=== PATIENT | male | born 1980 | race Caucasian/White ===

== ENCOUNTER 2016-07-04 18:50 | Emergency (ER) | payer OTHER, SELFPAY ==
[2016-07-04] MEDS ORDERED: XYLOCAINE 2% HCL 20 ML MDV IJ ONE (19:38)
--- NOTE | 2016-07-04 19:40 | ERPHSYRPT ---
- History of Present Illness Time Seen by Provider: 07/04/16 19:25 Source: patient, family Exam Limitations: clinical condition Patient Subjective Stated Complaint: PT IS IN THE PROCESS OF MOVING ET TRIPPED OVER A BUNGEE CORD YESTERDAY AND STRUCK THE LEFT EYE AND FOREHEAD ON THE EDGE OF A TABLE. REPORTS POSITIVE LOC, UNKNOWN AMOUNT OF TIME. PT IS CONCERNED DUE TO PREVIOUS HEAD INJURY. SUPERFICIAL SCAR NOTED TO BACK OF NECK. Triage Nursing Assessment: PT IS AOX3, FOLLOWS COMMANDS, PT AMBULATORY TO TRT AREA WITH STEADY GAIT, SKIN IS PWD, LACERATION NOTED TO LEFT FOREHEAD AND SWELLING TO LEFT EYE, RESPS ARE EASY AND NONLABORED. Physician History: PATIENT STATES HE TRIPPED OVER BUNGEE CORD LAST NIGHT, STRUCK HIS FACE AGAINST TABLE SUSTAINED LACERATION ABOVE LEFT EYEBROW, BRUSING WITH SWELLING BELOW LEFT EYE. HAD LOSS OF CONSCIOUSNESS, ASSOCIATED WITH EMESIS X 2, NECK PAIN, MORE SO THAN FROM HIS DEGENERATIVE DISC DISEASE. DENIES NUMBNESS, TINGLING OR WEAKNESS IN EXTREMITIES, UNSTABLE GAIT. Occurred: yesterday Reason for Fall: tripped Injuries/Pain Location: head, face, neck Loss of Consciousness: prolonged (minutes) Quality: aching Severity of Pain-Max: mild Modifying Factors: Improves With: movement Associated Symptoms (Fall): denies symptoms Allergies/Adverse Reactions: No Known Drug Allergies Allergy (Verified 07/04/16 19:18) Home Medications: Hydrocodone/APAP 10/325 mg [[place] 10/325 MG Tablet] 1 tab PO Q4HPRN PRN [History] Alprazolam 1 mg [Xanax 1 mg] 1 mg PO Q6HPRN PRN 07/04/16 [History] Lisinopril 10 mg [Zestril 10 MG] 10 mg PO DAILY 07/04/16 [History] Hx Tetanus, Diphtheria Vaccination/Date Given: Yes Hx Influenza Vaccination/Date Given: No Hx Pneumococcal Vaccination/Date Given: No Immunizations Up to Date: Yes - Review of Systems Constitutional: No Fever, No Chills Eyes: Other (SWELLING, BRUISING BELOW LEFT EYE, LACERATION ABOVE LEFT EYE BROW) Ears, Nose, & Throat: No Symptoms Respiratory: No Symptoms, No Cough, No Dyspnea Cardiac: No Symptoms, No Chest Pain, No Edema, No Syncope Abdominal/Gastrointestinal: No Abdominal Pain, No Nausea, No Vomiting, No Diarrhea Genitourinary Symptoms: No Symptoms, No Dysuria Musculoskeletal: Neck Pain, No Back Pain Skin: No Rash Neurological: Other (LOSS OF CONSCIOUSNESS), No Dizziness, No Focal Weakness, No Sensory Changes Psychological: No Symptoms Endocrine: No Symptoms All Other Systems: Reviewed and Negative - Past Medical History Pertinent Past Medical History: Yes Neurological History: No Pertinent History, Other ENT History: No Pertinent History Cardiac History: No Pertinent History, Hypertension Respiratory History: Asthma, COPD Endocrine Medical History: No Pertinent History Musculoskeletal History: Arthritis, Degenerative Disk Disease, Fractures, Other GI Medical History: No Pertinent History History: No Pertinent History Psycho-Social History: Anxiety, Bipolar, Depression Male Reproductive Disorders: Other Other Medical History: hx several broken bones, sharp pain in side of head with slight memory loss.,shingles, testicular veriocele, mrsa in rt foot one yr ago - Past Surgical History Past Surgical History: Yes Neuro Surgical History: No Pertinent History Cardiac: No Pertinent History Respiratory: No Pertinent History Gastrointestinal: No Pertinent History Genitourinary: No Pertinent History Musculoskeletal: Other Male Surgical History: Testicular Surgery Other Surgical History: SPINE RECONSTRUCTION - Social History Smoking Status: Current every day smoker How long have you smoked: 25 Exposure to second hand smoke: Yes Drug Use: none Patient Lives Alone: No - Nursing Vital Signs Nursing Vital Signs: Initial Vital Signs Temperature 98.0 F Temperature Source Oral Pulse Rate 85 Respiratory Rate 18 Blood Pressure [] 147/79 Pain Intensity 2 - Lorrie Coma Score Best Eye Response ([place]): (4) open spontaneously Best Verbal Response ([place]orrie): (5) oriented Best Motor Response ([place]): (6) obeys commands Lorrie Total: 15 - Physical Exam General Appearance: no apparent distress, alert, other (RIGID CERVICAL COLLAR APPLIED UPON ARRIVAL) Head Injury: lacerations (LEFT LATERAL FOREHEAD SUPERIOR TO LEFT EYEBROW 3CM DIAGONAL LACERATION, NO EVIDENCE OF FOREIGN BODY) Eye Exam: PERRL/EOMI, other (LEFT INFRAORBITAL ECCHYMOSIS AND SWELLING, NO PERIORBITAL CREPITUS) ENT Exam: airway nml Neck Exam: supple, normal inspection, other (MINIMAL POST CERVICAL SPINAL TENDERNESS,), No tenderness Respiratory/Chest Exam: normal breath sounds, No chest tenderness, No respiratory distress Cardiovascular Exam: normal heart sounds, regular rate/rhythm Gastrointestinal Exam: soft, No tenderness, No distention, No guarding, No ecchymosis Back Exam: normal inspection, normal range of motion, No vertebral tenderness Extremity Exam: normal inspection, normal range of motion, pelvis stable, No deformities Peripheral Pulses: carotid (R): 2+, carotid (L): 2+, femoral (R): 2+, femoral (L ): 2+, dorsalis-pedis (R): 2+, dorsalis-pedis (L): 2+ Neurologic Exam: alert, oriented x 3, cooperative, sensation nml, No motor deficits Skin Exam: normal color, warm, dry SpO2 Interpretation: normal SpO2: 98 Oxygen Delivery: Room Air Procedures - Laceration/Wound Repair Head Wound Location: Left, forehead Wound Length (cm): 3 Wound's Depth, Shape: linear, into subcut Irrigated: Yes Hibiclens Prep: Yes Anesthesia: local, 2% Lidocaine Volume Anesthetic (ccs): 4 Wound Repaired With: sutures Suture Size/Type: 5-0 Number of Sutures: 6 Layer Closure?: No Sterile Dressing Applied?: Yes - CT Exams Head CT Interpretation: Tele-radiologist Report, No/Intracranial Hemorrhag Maxillofacial Bones CT Interpretation: Tele-radiologist Report (LEFT ORBITAL FRACTURE WITH APPROXIMATELY 6MM DEPRESSION, NO CT EVIDENCE FOR ENTRAPMENT, FRACTURE ALSO EXTENDS INTO THE ROOF OF THE ORBIT INVOLVING THE LEFT FRONTAL SINUS, THERE IS EXTENSIVE LEFT FACIAL SOFT TISSUE SWELLING WITH GAS PRESENT IN THE SOFT TISSUE) Cervical Spine CT Interpretation: Tele-radiologist Report, No Fracture, No Subluxation (NORMAL CERVICAL SPINE CT) Ordered Tests: Active Orders 24 hr Category Date Time Status Cervical Collar Application STAT Care 07/04/16 19:36 Active Ice Pack, Apply STAT Care 07/04/16 19:39 Active CERVICAL SPINE WO CONTRAST [CT] Stat Exams 07/04/16 19:38 Taken FACIAL BONES WO CONTRAST [CT] Stat Exams 07/04/16 19:35 Taken HEAD WITHOUT CONTRAST [CT] Stat Exams 07/04/16 19:35 Taken Medication Summary Generic Name Dose Route Start Last Admin Trade Name Freq PRN Reason Stop Dose Admin Acetaminophen/Hydrocodone Bitart 2 tab 07/04/16 21:15 [place] 10/325 Mg Tablet PO 07/04/16 21:16 SENT HOME W/ PATIENT ONE Discontinued Medications Generic Name Dose Route Start Last Admin Trade Name Laisha PRN Reason Stop Dose Admin Acetaminophen/Hydrocodone Bitart 1 tab 07/04/16 21:03 07/04/16 21:10 [place] 10/325 Mg Tablet PO 07/04/16 21:04 1 tab STAT ONE Administration Acetaminophen/Hydrocodone Bitart Confirm 07/04/16 21:09 [place] 10/325 Mg Tablet Administered 07/04/16 21:10 Dose 1 tab .ROUTE .STK-MED ONE Bacitracin Confirm 07/04/16 20:40 Baciguent Packet Administered 07/04/16 20:41 Dose 1 gm .ROUTE .STK-MED ONE Cephalexin HCl 500 mg 07/04/16 20:45 07/04/16 20:52 Keflex 500 Mg PO 07/04/16 20:46 500 mg STAT ONE Administration Cephalexin HCl Confirm 07/04/16 20:48 Keflex 500 Mg Administered 07/04/16 20:49 Dose 500 mg .ROUTE .STK-MED ONE Lidocaine HCl 4 ml 07/04/16 19:38 07/04/16 20:44 Xylocaine 2% Hcl 20 Ml Mdv IJ 07/04/16 19:39 4 ml STAT ONE Administration Lidocaine HCl Confirm 07/04/16 20:07 Xylocaine 2% Hcl 20 Ml Mdv Administered 07/04/16 20:08 Dose 4 ml .ROUTE .STK-MED ONE - Progress Progress: pain not gone completely Progress Note: 07/04/16 20:09 PATIENT TETNUS IS CURRENT 07/04/16 20:58 PATIENT ADMINISTERED KEFLEX 500MG AND [place] 10/325 ORALLY 07/04/16 21:07 Discussed with .: Other (CONSULTED DR BAILEY [facility] AT [facility]100 FOR OFFICE FOLLOWUP) Counseled pt/family regarding: diagnosis - Departure Time of Disposition: 21:17 Departure Disposition: Home Clinical Impression: LEFT ORBITAL FLOOR/FRONTAL SINUS FRACTURES, CONCUSSION, FOREHEAD LACERATION Condition: Stable Critical Care Time: No Referrals: ANNA PATINO [Primary Care Provider] - Additional Instructions: CALL [facility]GE[facility] DR BAILEY FOR APPOINTMENT AT [facility] TOMORROW FOR APPOINTMENT. ANTIBIOTIC KEFLEX 500MG EVERY 6 HOURS FOR 7 DAYS. NORCO 10/325 EVERY 4 HOURS FOR PAIN NEEDED. HAVE STITCHES REMOVED AT 10 DAYS. WATCH FOR SIGNS OF INFECTION, REDNESS, SWELLING OR DRAINAGE. Prescriptions: Hydrocodone/APAP 10/325 mg [[place] 10/325 MG Tablet] 1 tab PO Q4H PRN PRN # 10 tablet PRN Reason: Pain Cephalexin Mh 500 mg [Keflex 500 mg] 500 mg PO QID #28 capsule
[2016-07-04] MEDS ORDERED: XYLOCAINE 2% HCL 20 ML MDV ONE (20:07)
[2016-07-04] MEDS ORDERED: BACIGUENT PACKET ONE (20:40)
[2016-07-04] MEDS ORDERED: KEFLEX 500 MG PO ONE (20:45)
[2016-07-04] MEDS ORDERED: KEFLEX 500 MG ONE (20:48)
[2016-07-04] MEDS ORDERED: Norco 10/325 MG Tablet PO ONE ×2 (21:03→21:15)
[2016-07-04] MEDS ORDERED: Norco 10/325 MG Tablet ONE ×2 (21:09→21:18)
[2016-07-04 21:24] VITALS: BP 160/56; PULSE 88; O2SAT 99
[2016-07-05] MEDS ORDERED: BACIGUENT PACKET TP ONE (04:23)
--- NOTE | 2016-07-05 08:58 | XRAY ---
Indication: Pain following fall. Multiple contiguous axial images obtained through the head without contrast. Comparison: None Small focus of left supraorbital soft tissue swelling/laceration. CT facial bones reported separately. 3 cm arachnoid cyst in the right posterior fossa. No acute intracranial hemorrhage, abnormal extra-axial fluid collection, or mass effect. Fourth ventricle is midline without hydrocephalus. Bland-white matter differentiation preserved. Bony calvarium intact. Visualized paranasal sinuses and mastoid air cells are pneumatized and clear. Impression: Right posterior fossa arachnoid cyst. No acute intracranial abnormalities. Comment: Preliminary interpretation was made by [facility]. No critical discrepancy. CT DI 49.71
--- NOTE | 2016-07-05 09:06 | XRAY ---
Indication: Pain following fall. Multiple contiguous axial images obtained through the facial bones. Sagittal and coronal reformatted images obtained. Comparison: None Left orbit demonstrates mildly depressed fracture involving the floor. Smaller focus of minimal displaced fracture seen of the roof of the left orbit. Surrounding subcutaneous emphysema and soft tissue swelling. No extraocular muscle entrapment. Paranasal sinuses are pneumatized and clear. Incidental enlarged palatine tonsils bilaterally. Remaining visualized noncontrasted soft tissues unremarkable. CT head and CT cervical spine reported separately. Impression: Left orbital floor and roof fractures as detailed. Incidental enlarged palatine tonsils. Comment: Preliminary interpretation was made by [facility]. No critical discrepancy. CT DI 59.47
--- NOTE | 2016-07-05 09:08 | XRAY ---
Indication: Status post fall. Multiple contiguous axial images obtained through the cervical spine. Sagittal and coronal reformatted images obtained. Axial images negative for acute fracture, suspicious bony lesions, or spinal canal stenosis. Sagittal and coronal reformatted images demonstrates normal alignment with disc spaces preserved. No acute compression fracture, subluxation, or jumped facet. Normal-appearing craniocervical junction. Incidental prominent palatine tonsils bilaterally. Remaining visualized noncontrasted soft tissues unremarkable. CT head and CT facial bones reported separately. Impression: Negative for acute fracture/subluxation. Incidental prominent palatine tonsils. Comment: Preliminary interpretation was made by [facility]. No critical discrepancy. CT DI 111.09
== END 2016-07-04 21:23 | disposition home or self-care (01) ==
LOC: ED 18:50
PROC: 0HQ1XZZ Repair Face Skin, External Approach (ICD-10-PCS; principal; 2016-07-04)
DX: S02.32XA Fracture of orbital floor, left side, initial encounter for closed fracture (principal); W01.190A Fall on same level from slipping, tripping and stumbling with subsequent striking against furniture, initial encounter; S02.19XA Other fracture of base of skull, initial encounter for closed fracture; S06.0X9A Concussion with loss of consciousness of unspecified duration, initial encounter; S01.81XA Laceration without foreign body of other part of head, initial encounter
CPT/HCPCS: 12013; 70450; 70486; 72125; 99283; 99284; L0172

== ENCOUNTER 2016-08-10 13:07 | Emergency (ER) | payer OTHER ==
[2016-08-10 13:20] VITALS: O2SAT 97
--- NOTE | 2016-08-10 13:45 | ERPHSYRPT ---
- History of Present Illness Time Seen by Provider: 08/10/16 13:30 Source: patient Exam Limitations: no limitations Patient Subjective Stated Complaint: PT STATES THAT HE HAS BEEN HAVING RIGHT TESTICLE PAIN X 3 DAYS STATES HTE PAIN IS NOW RADIATING UP INTO HIS RIGHT SIDE LOWER QUAD STATES THAT WHEN HE APPLIES PRESSURE TO RIGHT LOWER QUAD IT MAKES THE PAIN FEEL BETTER. 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 Triage Nursing Assessment: PT ALERT WARM AND DRY RESP EASY NON LABOED PT AMBULATED TO ROOM WITHOUT DIFFICULTY LAST ATE AROUND 1130 Timing/Duration: day(s) (3) Activites at Onset: physical activity (lifting heavy objects) Quality: sharpness Onset Location: periumbilical, right testicle Pain Radiation: scrotal Severity of Pain-Max: moderate Severity of Pain-Current: moderate Modifying Factors: Improves With: movement Prior abdominal problems: other (prior left varicocele) Sexual intercourse history: single partner Allergies/Adverse Reactions: No Known Drug Allergies Allergy (Verified 07/04/16 19:18) Home Medications: Hydrocodone/APAP 10/325 mg [[place] 10/325 MG Tablet] 1 tab PO Q4HPRN PRN [History] Alprazolam 1 mg [Xanax 1 mg] 1 mg PO Q6HPRN PRN 07/04/16 [History] Lisinopril 10 mg [Zestril 10 MG] 10 mg PO DAILY 07/04/16 [History] Hx Tetanus, Diphtheria Vaccination/Date Given: Yes Hx Influenza Vaccination/Date Given: No Hx Pneumococcal Vaccination/Date Given: No Immunizations Up to Date: Yes - Past Medical History Pertinent Past Medical History: Yes Neurological History: No Pertinent History, Other ENT History: No Pertinent History Cardiac History: No Pertinent History, Hypertension Respiratory History: Asthma, COPD Endocrine Medical History: No Pertinent History Musculoskeletal History: Arthritis, Degenerative Disk Disease, Fractures, Other GI Medical History: No Pertinent History History: No Pertinent History Psycho-Social History: Anxiety, Bipolar, Depression Male Reproductive Disorders: Other Other Medical History: hx several broken bones, sharp pain in side of head with slight memory loss.,shingles, testicular veriocele, mrsa in rt foot one yr ago - Past Surgical History Past Surgical History: Yes Neuro Surgical History: No Pertinent History Cardiac: No Pertinent History Respiratory: No Pertinent History Gastrointestinal: No Pertinent History Genitourinary: No Pertinent History Musculoskeletal: Other Male Surgical History: Testicular Surgery Other Surgical History: SPINE RECONSTRUCTION - Social History Smoking Status: Current every day smoker How long have you smoked: 16 YEARS Exposure to second hand smoke: Yes Drug Use: none Patient Lives Alone: No - Review of Systems Constitutional: No Symptoms Eyes: No Symptoms Ears, Nose, & Throat: No Symptoms Respiratory: No Symptoms Cardiac: No Symptoms Abdominal/Gastrointestinal: No Symptoms Genitourinary Symptoms: Testicle Pain, No Dysuria, No Frequency, No Hematuria Musculoskeletal: No Symptoms Skin: No Symptoms Neurological: No Symptoms Psychological: No Symptoms Endocrine: No Symptoms Hematologic/Lymphatic: No Symptoms Immunological/Allergic: No Symptoms - Nursing Vital Signs Nursing Vital Signs: Initial Vital Signs Temperature 99.0 F Temperature Source Oral Pulse Rate 89 Respiratory Rate 16 Blood Pressure [] 116/91 Pain Intensity 8 - Physical Exam General Appearance: moderate distress Eye Exam: eyes nml inspection Ears, Nose, Throat Exam: normal ENT inspection, pharynx normal Neck Exam: normal inspection, non-tender, supple, full range of motion Respiratory Exam: normal breath sounds, lungs clear Cardiovascular Exam: regular rate/rhythm, normal heart sounds, normal peripheral pulses Gastrointestinal/Abdomen Exam: soft, normal bowel sounds, tenderness Back Exam: normal inspection, normal range of motion Extremity Exam: normal inspection, normal range of motion, pelvis stable Neurologic Exam: alert, oriented x 3, cooperative Skin Exam: normal color, warm, dry SpO2 Interpretation: normal SpO2: 97 Oxygen Delivery: Room Air - Course Nursing assessment & vital signs reviewed: Yes - Radiology Ultrasound Exam Scrotal Ultrasound: tele radiology report (Negative for testicular torsion. Right epididymal cyst and small hydrocele. ) Ordered Tests: Active Orders 24 hr Category Date Time Status TESTICLE [US] Stat Exams 08/10/16 13:34 Completed UA W/ MICROSCOPIC Stat Lab 08/10/16 14:49 Completed UA W/RFX UR CULTURE Stat Lab 08/10/16 14:49 Completed Lab/Rad Data: Laboratory Results 08/10/16 Range/Units 14:49 Ur Collection Type CCMS Urine Color YELLOW (YELLOW) Urine Appearance CLEAR (CLEAR) Urine pH 6.0 (5-6) Ur Specific [place] >=1.030 (1.005-1.025) Urine Protein TRACE (Negative) Urine Glucose (UA) NEGATIVE (NEGATIVE) mg/dL Urine Ketones SMALL-15 (NEGATIVE) Urine Nitrite NEGATIVE (NEGATIVE) Urine Bilirubin SMALL (NEGATIVE) Urine Urobilinogen 1 (0-1) mg/dL Urine WBC (Auto) NEGATIVE (NEGATIVE) Urine RBC (Auto) NEGATIVE (0-5) Vladimir/ul Urine Microscopic WBC 0-2 (0-5) /HPF Ur Epithelial Cells RARE (FEW) /HPF Urine Mucus SLIGHT (NEGATIVE) /HPF Specimen Received 08-10-16 1507 - Progress Progress: improved Counseled pt/family regarding: lab results, need for follow-up (with urologist) , rad results - Departure Time of Disposition: 15:20 Departure Disposition: Home Clinical Impression: Right testicular pain, Epididymal cyst Condition: Stable Critical Care Time: No Referrals: ANNA PATINO [Primary Care Provider] - Prescriptions: Naproxen 1 tab PO BID #20 tablet
[2016-08-10 14:36] VITALS: BP 116/91; PULSE 89
--- NOTE | 2016-08-10 14:41 | XRAY ---
Indication: Right testicle pain for 4 days. Two-dimensional testicular sonogram performed. Comparison: None Right testicle measures 4.3 x 2.3 x 2.4 cm and left measures 5.2 x 2.2 x 3.0 cm. Normal color perfusion bilaterally. 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 Left testicle demonstrates subtle heterogeneity without focal solid/cystic mass. 1.4 cm right epididymal cyst and small hydrocele. Left epididymis unremarkable. No suspicious solid extra testicular mass. Impression: 1. Negative for testicular torsion. 2. Right epididymal cyst and small hydrocele. 3. Numerous bilateral testicular microliths, typically benign incidental finding. However the left testicle appears somewhat heterogeneous and warrants urologic follow-up.
[2016-08-10 15:16] LABS: ADD URINE CULTURE? NO (NO); Collection Type CCMS
[2016-08-10 15:17] LABS: COMPLETE URINE MICROSCOPIC? YES; Epithelial Cells RARE /HPF (FEW); Mucus SLIGHT /HPF (NEGATIVE); WBC 0-2 /HPF (0-5)
== END 2016-08-10 15:46 | disposition home or self-care (01) ==
LOC: ED 13:07
DX: N50.811 Right testicular pain (principal); N50.3 Cyst of epididymis; X50.0XXA Overexertion from strenuous movement or load, initial encounter; R10.31 Right lower quadrant pain; I10 Essential (primary) hypertension
CPT/HCPCS: 76870; 81000; 99284

== ENCOUNTER 2018-01-13 15:46 | Emergency (ER) | payer OTHER ==
[2018-01-13] MEDS ORDERED: Adenocard IV 6 MG/2 ML IV ONE ×2 (16:01→16:05)
[2018-01-13] MEDS ORDERED: Sodium Chloride 0.9% 1000 ML 1,000 ML ONE ×2 (16:05→17:15)
[2018-01-13 16:12] LABS: BASOPHIL % 0.3 % (0.0-0.4); Basophil (Absolute #) 0.03 (0-0.4); Eosinophil % 1.1 % (0.00-5.0); Eosinophil (Absolute #) 0.13 (0-0.5); Granulocyte Absolute (ANC) 7.36 (1.4-6.9); Granulocytes % 62.9 % (36.0-66.0); Hematocrit 41.1 % (42-50); Hemoglobin 14.3 gm/dl (12.5-18.0); Lymphocyte (Absolute #) 2.79 (1.0-4.6); Lymphocytes % 23.8 % (24.0-44.0); Mean Cell Volume 82.5 fl (78-100); Mean Corpuscular Hemoglobin 28.7 pg (26-32); Mean Corpuscular Hgb Concent. 34.8 g/dl (32-36); Mean Platelet Volume 9.8 fl (6-9.5); Monocyte (Absolute #) 1.39 (0.0-1.3); Monocytes % 11.9 % (0.0-12.0); Platelet Count 292 K/mm3 (150-450); Red Blood Count 4.98 M/mm3 (4.1-5.6); Red Cell Distribution Width 14.5 % (11.5-14.0); White Blood Count 11.7 K/mm3 (4.0-10.5)
[2018-01-13] MEDS ORDERED: Sodium Chloride 0.9% 1000 ML 1,000 ML IV SCH (16:15)
--- NOTE | 2018-01-13 16:19 | ERPHSYRPT ---
- History of Present Illness Time Seen by Provider: 01/13/18 16:14 Historian: patient Exam Limitations: no limitations Patient Subjective Stated Complaint: pt here for high blood pressure,palpataions ,pain to chest that radiates to left side of neck about 1100 today, he states chest pain is gone know Triage Nursing Assessment: pt alert, resp easy, skin w/d/p, no fever, or cough. no edema noted Physician History: This is a 37-year-old white male with history of angina, high blood pressure, asthma, COPD, arthritis, degenerative disc disease, anxiety, bipolar disease. He arrives with complaint of pain in his upper anterior chest radiating up into his neck associated with shortness of breath symptoms since 11:00 today. Patient states he did use methamphetamines yesterday went to bed felt like it really didn't do anything woke up in later had the symptoms, patient arrives with a heart rate of greater than 220 has also had a blood pressure systolic down to around 66. He did state that he took nitroglycerin 2 prior to arrival. Past medical history includes high blood pressure, asthma, COPD, angina, arthritis, degenerative disc disease, fractures, anxiety, bipolar disorder he's had a broken bones in the past he has had a history of head pain and memory loss , he has a history of a testicular varicocele and MRSA of the right foot, Past surgical history includes testicular surgery and spine reconstruction, Social history is positive for marijuana, positive for methamphetamines positive for tobacco use. Timing/Duration: today (11:00 this morning) Activities at Onset: rest Quality: aching Location: substernal Chest Pain Radiation: neck Severity of Pain-Max: moderate Severity of Pain-Current: moderate Modifying Factors: Improves With: other (patient use methamphines last night) Prior Chest Pain/Cardiac Workup: angina Nitro Today/Relief: 0.4 mg x 2 Aspirin Treatment Today: 81 mg x 4 Allergies/Adverse Reactions: No Known Drug Allergies Allergy (Verified 01/13/18 16:02) Home Medications: Hydrocodone/APAP 10/325 mg [[place] 10/325 MG Tablet] 1 tab PO Q4HPRN PRN [History] Alprazolam 1 mg [Xanax 1 mg] 1 mg PO Q6HPRN PRN 07/04/16 [History] Lisinopril 10 mg [Zestril 10 MG] 10 mg PO DAILY 07/04/16 [History] Hx Tetanus, Diphtheria Vaccination/Date Given: No Hx Influenza Vaccination/Date Given: No Hx Pneumococcal Vaccination/Date Given: No Immunizations Up to Date: Yes - Review of Systems Constitutional: No Fever, No Chills Eyes: No Symptoms Ears, Nose, & Throat: No Symptoms Respiratory: Dyspnea, No Cough, No Cyanosis, No Dyspnea on Exertion (GUTIÉRREZ), No Stridor, No Wheezing Cardiac: Chest Pain, Palpitations Abdominal/Gastrointestinal: No Abdominal Pain, No Nausea, No Vomiting, No Diarrhea Genitourinary Symptoms: No Dysuria Musculoskeletal: No Back Pain, No Neck Pain Skin: No Rash Neurological: No Dizziness, No Focal Weakness, No Sensory Changes Psychological: Drug Abuse Endocrine: No Symptoms All Other Systems: Reviewed and Negative - Past Medical History Pertinent Past Medical History: Yes Neurological History: No Pertinent History, Other ENT History: No Pertinent History Cardiac History: No Pertinent History, Hypertension Respiratory History: COPD Endocrine Medical History: No Pertinent History Musculoskeletal History: Degenerative Disk Disease, Osteoarthritis GI Medical History: No Pertinent History History: No Pertinent History Psycho-Social History: Anxiety, Bipolar, Depression Male Reproductive Disorders: Other Other Medical History: HE IS TRYING TO GET DISABILITY CURRENTLY HE HAS SEVERE PAIN TO BACK, KNEES, NECK, AND IS ACHEY ALL OVER. - Past Surgical History Past Surgical History: Yes Neuro Surgical History: No Pertinent History Cardiac: No Pertinent History Respiratory: No Pertinent History Gastrointestinal: No Pertinent History Genitourinary: No Pertinent History Musculoskeletal: Other Male Surgical History: Testicular Surgery Other Surgical History: SPINE RECONSTRUCTION - Social History Smoking Status: Current every day smoker How long have you smoked: 16 YEARS Exposure to second hand smoke: Yes Drug Use: marijuana, methamphetamines Patient Lives Alone: No - Nursing Vital Signs Nursing Vital Signs: Initial Vital Signs Pulse Rate 105 H 01/13/18 16:39 Respiratory Rate 18 01/13/18 16:39 Blood Pressure 91/60 01/13/18 16:39 O2 Sat by Pulse Oximetry 99 01/13/18 16:39 Pain Scale Pain Intensity 0 - Physical Exam General Appearance: moderate distress, anxiety Eye Exam: PERRL/EOMI, eyes nml inspection Ears, Nose, Throat Exam: normal ENT inspection, moist mucous membranes Neck Exam: normal inspection, non-tender, supple, full range of motion Respiratory Exam: normal breath sounds, lungs clear, No respiratory distress Cardiovascular Exam: tachycardia, capillary refill <2 sec, No murmur Gastrointestinal/Abdomen Exam: soft, No tenderness, No mass Back Exam: normal inspection, No CVA tenderness, No vertebral tenderness Extremity Exam: normal inspection, normal range of motion Neurologic Exam: alert, oriented x 3, cooperative, normal mood/affect, sensation nml, No motor deficits Skin Exam: normal color, warm, dry SpO2 Interpretation: normal (98%), borderline oxygenation (s) Oxygen Delivery: Room Air - Course Nursing assessment & vital signs reviewed: Yes EKG Interpreted by Me: RATE (223 bpm), SVT, NORMAL AXIS, Other (EKG supraventricular tacchycardia narrow complex, 223 beats per minute , normal axis , rate related changes) - Radiology Exams Chest X-ray Interpretation: Interpreted by me (no acute disease process noted) Ordered Tests: Active Orders 24 hr Category Date Time Status Registered Nurse Cardiac STAT Care 01/13/18 16:02 Active EKG-ER Only STAT Care 01/13/18 16:01 Active EKG-ER Only STAT Care 01/13/18 16:40 Active IV Insertion STAT Care 01/13/18 16:01 Active IV Insertion STAT Care 01/13/18 16:12 Active IV Insertion-2nd Peripheral STAT Care 01/13/18 16:30 Active CHEST 1 VIEW (PORTABLE) Stat Exams 01/13/18 16:02 Taken ACETAMINOPHEN Urgent Lab 01/13/18 16:00 Completed AMYLASE Stat Lab 01/13/18 16:00 Completed CBC W DIFF Stat Lab 01/13/18 16:00 Completed CK-Creatinine Phosphokinase Stat Lab 01/13/18 16:00 Completed CMP Stat Lab 01/13/18 16:00 Completed D-DIMER QUANTITATION Stat Lab 01/13/18 16:00 Received ETHYL ALCOHOL Urgent Lab 01/13/18 16:00 Completed PROTIME WITH INR Stat Lab 01/13/18 16:00 Received PTT Stat Lab 01/13/18 16:00 Received SALICYLATE Urgent Lab 01/13/18 16:00 Completed TROPONIN Q3H Lab 01/13/18 16:00 Completed TROPONIN Q3H Lab 01/13/18 19:15 Ordered TROPONIN Q3H Lab 01/13/18 22:15 Ordered TROPONIN Q3H Lab 01/14/18 01:15 Ordered TROPONIN Q3H Lab 01/14/18 04:15 Ordered Urine Triage Profile Stat Lab 01/13/18 17:57 Completed Medication Summary Generic Name Dose Route Start Last Admin Trade Name Laisha PRN Reason Stop Dose Admin Sodium Chloride 1,000 mls @ 100 mls/hr 01/13/18 16:15 01/13/18 17:15 Sodium Chloride 0.9% 1000 Ml IV 02/12/18 16:14 Infused .Q10H TIMBO Infusion Discontinued Medications Generic Name Dose Route Start Last Admin Trade Name Laisha PRN Reason Stop Dose Admin Adenosine 6 mg 01/13/18 16:01 01/13/18 16:20 Adenocard Iv 6 Mg/2 Ml IV 01/13/18 16:02 6 mg STAT ONE Administration Adenosine Confirm 01/13/18 16:05 Adenocard Iv 6 Mg/2 Ml Administered 01/13/18 16:06 Dose 18 mg IV .STK-MED ONE Diltiazem HCl 180 mg 01/13/18 18:43 Cardizem Cd 180 Mg PO 01/13/18 18:44 NOW STA Sodium Chloride 1,000 mls @ 999 mls/hr 01/13/18 17:14 01/13/18 18:17 Sodium Chloride 0.9% 1000 Ml IV 01/13/18 18:14 Infused .Q1H1M STA Infusion Lab/Rad Data: Laboratory Result Diagrams 01/13/18 16:00 01/13/18 16:00 Laboratory Results 01/13/18 01/13/18 01/13/18 Range/Units 17:57 16:00 16:00 WBC (4.0-10.5) K/mm3 RBC (4.1-5.6) M/mm3 Hgb (12.5-18.0) gm/dl Hct (42-50) % MCV (78-100) fl MCH (26-32) pg MCHC (32-36) g/dl RDW (11.5-14.0) % Plt Count (150-450) K/mm3 MPV (6-9.5) fl Gran % (36.0-66.0) % Eos # (Auto) (0-0.5) Absolute Lymphs (auto) (1.0-4.6) Absolute Monos (auto) (0.0-1.3) Lymphocytes % (24.0-44.0) % Monocytes % (0.0-12.0) % Eosinophils % (0.00-5.0) % Basophils % (0.0-0.4) % Absolute Granulocytes (1.4-6.9) Basophils # (0-0.4) Sodium 142 (137-145) mmol/L Potassium 4.1 (3.5-5.1) mmol/L Chloride 107 (98-107) mmol/L Carbon Dioxide 22 (22-30) mmol/L Anion Gap 16.8 H (5-15) MEQ/L BUN 20 (9-20) mg/dL Creatinine 1.72 H (0.66-1.25) mg/dL Estimated GFR 47.5 ML/MIN Glucose 117 H (74-106) mg/dL Calcium 9.8 (8.4-10.2) mg/dL Total Bilirubin 0.30 (0.2-1.3) mg/dL AST 27 (17-59) U/L ALT 36 (0-50) U/L Alkaline Phosphatase 163 H (38-126) U/L Creatine Kinase 191 H (55-170) U/L Troponin I 0.117 H* (0.000-0.034) ng/mL Serum Total Protein 7.3 (6.3-8.2) g/dL Albumin 4.5 (3.5-5.0) g/dL Amylase 73 (30-110) U/L Salicylates < 1.0 L (2-20) mg/dL Urine Opiates Level NEGATIVE (NEGATIVE) Ur Methadone NEGATIVE (NEGATIVE) Acetaminophen < 10 L (10-30) ug/ml Urine Barbiturates NEGATIVE (NEGATIVE) Ur Phencyclidine (PCP) NEGATIVE (NEGATIVE) Urine Amphetamine POSITIVE (NEGATIVE) U Benzodiazepine Level POSITIVE (NEGATIVE) Urine Cocaine NEGATIVE (NEGATIVE) Urine Marijuana (THC) POSITIVE (NEGATIVE) Ethyl Alcohol < 10 (0-10) mg/dL 01/13/18 Range/Units 16:00 WBC 11.7 H (4.0-10.5) K/mm3 RBC 4.98 (4.1-5.6) M/mm3 Hgb 14.3 (12.5-18.0) gm/dl Hct 41.1 L (42-50) % MCV 82.5 (78-100) fl MCH 28.7 (26-32) pg MCHC 34.8 (32-36) g/dl RDW 14.5 H (11.5-14.0) % Plt Count 292 (150-450) K/mm3 MPV 9.8 H (6-9.5) fl Gran % 62.9 (36.0-66.0) % Eos # (Auto) 0.13 (0-0.5) Absolute Lymphs (auto) 2.79 (1.0-4.6) Absolute Monos (auto) 1.39 H (0.0-1.3) Lymphocytes % 23.8 L (24.0-44.0) % Monocytes % 11.9 (0.0-12.0) % Eosinophils % 1.1 (0.00-5.0) % Basophils % 0.3 (0.0-0.4) % Absolute Granulocytes 7.36 H (1.4-6.9) Basophils # 0.03 (0-0.4) Sodium (137-145) mmol/L Potassium (3.5-5.1) mmol/L Chloride (98-107) mmol/L Carbon Dioxide (22-30) mmol/L Anion Gap (5-15) MEQ/L BUN (9-20) mg/dL Creatinine (0.66-1.25) mg/dL Estimated GFR ML/MIN Glucose (74-106) mg/dL Calcium (8.4-10.2) mg/dL Total Bilirubin (0.2-1.3) mg/dL AST (17-59) U/L ALT (0-50) U/L Alkaline Phosphatase (38-126) U/L Creatine Kinase (55-170) U/L Troponin I (0.000-0.034) ng/mL Serum Total Protein (6.3-8.2) g/dL Albumin (3.5-5.0) g/dL Amylase (30-110) U/L Salicylates (2-20) mg/dL Urine Opiates Level (NEGATIVE) Ur Methadone (NEGATIVE) Acetaminophen (10-30) ug/ml Urine Barbiturates (NEGATIVE) Ur Phencyclidine (PCP) (NEGATIVE) Urine Amphetamine (NEGATIVE) U Benzodiazepine Level (NEGATIVE) Urine Cocaine (NEGATIVE) Urine Marijuana (THC) (NEGATIVE) Ethyl Alcohol (0-10) mg/dL - Progress Progress: improved Air Movement: fair Progress Note: 01/13/18 16:22 37-year-old white male with history of angina, high blood pressure, anxiety, COPD, bipolar disorder patient arrives with complaint of pain in the anterior chest radiating to his neck described as aching symptoms since 11:00 this morning. Patient states that he had used methamphetamines last night went to bed and then woke up with the above symptoms. On arrival patient had a heart rate of 220 beats per minute supraventricular tachycardia. IV access is obtained IV normal saline is begun 1 L patient is given adenosine 6 mg IV with conversion of the rhythm. Patient feeling much better currently with a heart rate of 106 bpm blood pressure is improved from 66 systolic to him 91/59 Repeat EKG remarkable for sinus rhythm 10 6 bpm normal axis there does not appear to be acute ST or T wave changes. Appropriate labs have been ordered IV fluids have been ordered aspirin 324 mg have been ordered. 01/13/18 18:21 Patient is feeling markedly better no pain at this time heart rate is 95 bpm blood pressure is stable. Unfortunately patient was an elevated troponin urine drug screen is pending however patient states he was using meth yesterday. Will contact [facility] one call for possible transfer 01/13/18 18:44 Second repeat EKG obtained on this patient. Time January 13, 2018 1830 8 PM. EKG impression: Sinus rhythm, 94 bpm, normal axis, no acute ST or T wave changes, normal EKG. I've discussed the patient's case with Dr. Espinoza This includes EKG findings clinical presentation and clinical course as well as x-ray. He is requested that I give the patient Cardizem CD 180 mg orally now. Patient is already been given aspirin 324 mg orally and 2 L of normal saline as well as adenosine 6 mg IV. Syeda Espinoza wishes the patient to be transferred to [facility] however he will consult in wishes that I discuss the case with the hospitalist at [facility]. 01/13/18 18:58 I discussed the patient's case with Dr. Bettye Matamoros, hospitalist that [facility] he has accepted patient for transfer, transfer center will call when the bed is available . - Departure Time of Disposition: 19:00 Departure Disposition: Transfer ([facility] Dr Bettye Matamoros) Clinical Impression: Supraventricular tachycardia, Substance abuse, Elevated troponin Chest pain Qualifiers: Chest pain type: unspecified Qualified Code(s): R07.9 - Chest pain, unspecified Condition: Fair Critical Care Time: No Referrals: ANNA PATINO [Primary Care Provider] -
[2018-01-13 16:26] LABS: ALBUMIN 4.5 g/dL (3.5-5.0); ANION GAP 16.8 MEQ/L (5-15); BILIRUBIN,TOTAL 0.3 mg/dL (0.2-1.3); Calcium 9.8 mg/dL (8.4-10.2); Creatinine 1 1.72 mg/dL (0.66-1.25); Potassium 4.1 mmol/L (3.5-5.1); Total Protein 7.3 g/dL (6.3-8.2)
[2018-01-13 16:59] LABS: INR 0.91 (0.8-3.0)
[2018-01-13 17:01] LABS: PTT 26.3 SECONDS (24.1-36.1)
[2018-01-13] MEDS ORDERED: Sodium Chloride 0.9% 1000 ML 1,000 ML IV STA (17:14)
[2018-01-13 18:13] LABS: ACETAMINOPHEN < 10 ug/ml (10-30); ETHYL ALCOHOL < 10 mg/dL (0-10); SALICYLATE < 1.0 mg/dL (2-20); TROPONIN 0.117 ng/mL (0.000-0.034)
[2018-01-13 18:31] LABS: Amphetamine,Urine POSITIVE (NEGATIVE); Barbiturate,Urine NEGATIVE (NEGATIVE); Benzodiazepine,Urine POSITIVE (NEGATIVE); Cocaine,Urine NEGATIVE (NEGATIVE); Methadone,Urine NEGATIVE (NEGATIVE); Opiate,Urine NEGATIVE (NEGATIVE); PCP,Urine NEGATIVE (NEGATIVE); THC,Urine POSITIVE (NEGATIVE)
[2018-01-13] MEDS ORDERED: Cardizem CD 180 MG PO STA (18:43)
[2018-01-13 19:20] LABS: D-DIMER QUANTITATION < 215 ng/mL (215-500)
[2018-01-13 19:38] VITALS: BP 121/84; PULSE 92; O2SAT 98
--- NOTE | 2018-01-13 21:25 | XRAY ---
Indication: Short of breath and chest pain. History of COPD. Comparison: November 02, 2012. Portable chest again demonstrates normal heart, lungs, and bony thorax.
== END 2018-01-13 20:10 | disposition short-term general hospital (02) ==
LOC: ED 15:46
DX: I47.1 Supraventricular tachycardia (principal); R07.9 Chest pain, unspecified; R77.8 Other specified abnormalities of plasma proteins; F19.10 Other psychoactive substance abuse, uncomplicated; Z79.899 Other long term (current) drug therapy
CPT/HCPCS: 36000; 36415; 71045; 80053; 80307; 82150; 82550; 84484; 85025; 85379; 85610; 85730; 93005; 93041; 94799; 96360; 96361; 96374; 99285; G0481; J0153; A9270-GY; G0480

== ENCOUNTER 2019-09-03 20:59 | Emergency (ER) | payer OTHER ==
--- NOTE | 2019-09-03 21:35 | ERPHSYRPT ---
- History of Present Illness Time Seen by Provider: 09/03/19 21:00 Source: patient Patient Subjective Stated Complaint: pt states he tripped over a cord and fell hitting his tailbone and the back of his head. c/o pain in lower back, coccyx, hips and legs Triage Nursing Assessment: pt alert and oriented, answers questions approp. pt arrive per ambulance on back board with c collar in place. peripheral pulses wnl. cap refill to upper and lower ext wnl. pt reports decreased sensation in lower- normal for him.pt reports pain in lower back when lifting bilat legs. worse with rt. pt tender to lower back and coccyx with palpation. Physician History: 39 years old male with history of hypertension, seizure disorder from shelter is brought in the ER by EMS after he tripped on some cord leading to fall backward hitting his occipital area and back against the concrete. He denies any loss of consciousness or vomiting. He is complaining of mild to moderate occipital headache, some neck pain and mid and lower back pain especially with movements of lower extremities. Denies any numbness tingling or weakness in lower extremities. Denies any chest pain palpitations or shortness of breath. No abdominal pain nausea or vomiting. Not taking any blood thinners. Timing/Duration: today, sudden Severity: moderate Modifying Factors: Improves With: immobilization, movement Associated Symptoms: headaches, No nausea, No vomiting, No abdominal pain, No shortness of breath, No heartburn, No diaphoresis, No cough, No chest pain, No syncope, No seizure, No weakness Allergies/Adverse Reactions: No Known Drug Allergies Allergy (Verified 09/03/19 21:33) Home Medications: Lisinopril 10 mg [Zestril 10 MG] 5 mg PO DAILY 07/04/16 [History] Atorvastatin Calcium 40 mg PO DAILY 09/03/19 [History] Divalproex Sodium [Depakote] 1,000 mg PO HS 09/03/19 [History] Metoprolol Succinate 25 mg Xl* [Toprol-Xl 25MG Tablets] 25 mg PO DAILY [History] Mirtazapine 30 mg [Remeron 30 mg] 30 mg PO HS 09/03/19 [History] Hx Tetanus, Diphtheria Vaccination/Date Given: Yes Hx Influenza Vaccination/Date Given: No Hx Pneumococcal Vaccination/Date Given: No Immunizations Up to Date: Yes Travel Risk - International Travel If Yes where:: [facility] - Coronavirus Screening Has patient experienced Coronavirus symptoms: No - Review of Systems Constitutional: No Symptoms Eyes: No Symptoms Ears, Nose, & Throat: No Symptoms Respiratory: No Symptoms Cardiac: No Symptoms Abdominal/Gastrointestinal: No Symptoms Genitourinary Symptoms: No Symptoms Musculoskeletal: Back Pain, Neck Pain Skin: No Symptoms Neurological: Headache Psychological: No Symptoms Endocrine: No Symptoms Hematologic/Lymphatic: No Symptoms Immunological/Allergic: No Symptoms - Past Medical History Pertinent Past Medical History: Yes Neurological History: No Pertinent History, Other ENT History: No Pertinent History Cardiac History: No Pertinent History, Arrhythmia, Hypertension Respiratory History: COPD Endocrine Medical History: No Pertinent History Musculoskeletal History: Degenerative Disk Disease, Osteoarthritis GI Medical History: No Pertinent History History: No Pertinent History Psycho-Social History: Anxiety, Bipolar, Depression Male Reproductive Disorders: Other Other Medical History: HE IS TRYING TO GET DISABILITY CURRENTLY HE HAS SEVERE PAIN TO BACK, KNEES, NECK, AND IS ACHEY ALL OVER. - Past Surgical History Past Surgical History: Yes Neuro Surgical History: No Pertinent History Cardiac: No Pertinent History Respiratory: No Pertinent History Gastrointestinal: No Pertinent History Genitourinary: No Pertinent History Musculoskeletal: Other Male Surgical History: Testicular Surgery Other Surgical History: SPINE RECONSTRUCTION - Social History Smoking Status: Current every day smoker How long have you smoked: 16 YEARS Exposure to second hand smoke: Yes Drug Use: marijuana, methamphetamines Patient Lives Alone: No - Nursing Vital Signs Nursing Vital Signs: Initial Vital Signs Temperature 98.9 F 09/03/19 21:04 Pulse Rate 73 09/03/19 21:04 Respiratory Rate 20 09/03/19 21:04 Blood Pressure 146/93 09/03/19 21:04 O2 Sat by Pulse Oximetry 96 09/03/19 21:04 Pain Scale Pain Intensity 5 - Physical Exam General Appearance: no apparent distress Eye Exam: PERRL/EOMI, eyes nml inspection Ears, Nose, Throat Exam: normal ENT inspection, TMs normal, pharynx normal Neck Exam: normal inspection, supple, other (mild ledt lateral neck muscle tenderness with no step-off deformity.) Respiratory Exam: normal breath sounds, lungs clear, No chest tenderness, No respiratory distress Cardiovascular Exam: regular rate/rhythm, normal heart sounds, normal peripheral pulses Gastrointestinal/Abdomen Exam: soft, normal bowel sounds, No tenderness Back Exam: vertebral tenderness (Lower thoracic lumbar), decreased range of motion, muscle spasm Extremity Exam: normal inspection, pelvis stable, No calf tenderness, No deformities, No tenderness (Mid and lower back, midline and some paraspinal tenderness. Straight leg raising test positive bilaterally at 30 degrees elevation) Neurologic Exam: alert, oriented x 3, lead former II-XII nml as tested, normal mood/ affect, nml cerebellar function Skin Exam: normal color SpO2 Interpretation: normal SpO2: 96 O2 Delivery: Room Air - Course Nursing assessment & vital signs reviewed: Yes Ordered Tests: Active Orders 24 hr Category Date Time Status IV Insertion STAT Care 09/03/19 22:42 Ordered NPO (ED) STAT Care 09/03/19 23:40 Ordered CERVICAL SPINE WO CONTRAST [CT] Stat Exams 09/03/19 21:11 Taken CHEST WITHOUT CONTRAST [CT] Stat Exams 09/03/19 22:43 Ordered HEAD WITHOUT CONTRAST [CT] Stat Exams 09/03/19 21:11 Taken LUMBAR SPINE W/O [CT] Stat Exams 09/03/19 21:11 Taken PELVIS WITHOUT CONTRAST [CT] Stat Exams 09/03/19 21:12 Taken THORACIC SPINE W/O CONTRAST [CT] Stat Exams 09/03/19 21:12 Taken CBC W DIFF Stat Lab 09/03/19 22:42 Ordered CMP Stat Lab 09/03/19 22:42 Ordered LIPASE Stat Lab 09/03/19 22:42 Ordered Lactic Acid Stat Lab 09/03/19 23:40 Ordered Medication Summary Generic Name Dose Route Start Last Admin Trade Name Freq PRN Reason Stop Dose Admin Sodium Chloride 1,000 mls @ 999 mls/hr 09/03/19 23:40 Sodium Chloride 0.9% 1000 Ml IV 09/04/19 00:40 .Q1H1M STA Pantoprazole Sodium 40 mg 09/03/19 23:40 Protonix 40 Mg Iv IV 09/03/19 23:41 STAT ONE Discontinued Medications Generic Name Dose Route Start Last Admin Trade Name Freq PRN Reason Stop Dose Admin Morphine Sulfate 4 mg 09/03/19 22:14 09/03/19 22:24 Morphine Sulfate 4 Mg Inj IV 09/03/19 22:15 4 mg STAT ONE Administration Morphine Sulfate Confirm 04/22/20 22:22 Morphine Sulfate 4 Mg Inj Administered 09/03/19 22:23 Dose 4 mg .ROUTE .STK-MED ONE Ondansetron HCl 4 mg 09/03/19 22:14 09/03/19 22:24 Zofran 4 Mg/2 Ml Vial IV 09/03/19 22:15 4 mg STAT ONE Administration Ondansetron HCl Confirm 09/03/19 22:22 Zofran 4 Mg/2 Ml Vial Administered 09/03/19 22:23 Dose 4 mg .ROUTE .STK-MED ONE - Progress Progress: pain not gone completely, re-examined Progress Note: 09/03/19 23:48 39 years old is evaluated for fall with injury to head and back. He is given pain medications. I have obtained CT head neck which are negative for any acute findings. CT lumbar and thoracic spine and pelvis did not show any acute bony abnormality. Patient is feeling better on reevaluation. CT thoracic spine showed small amount of para esophageal air bubbles. I have done CT with Gastrografin and it did show small amount of air in the mediastinum but no obvious leak. He is given Protonix here. Make him n.p.o. Discussed with Dr. Ramirez at [facility] and patient is being transferred as he needs further evaluation or at least monitoring for pneumomediastinum. - Departure Departure Disposition: Home, Transfer Clinical Impression: Pneumomediastinum, Multiple contusions Fall Qualifiers: Encounter type: initial encounter Qualified Code(s): W19.XXXA - Unspecified fall, initial encounter Condition: Stable Critical Care Time: Yes Critical Care Time(excluding separately billable procedures): Critical 30-74 mins Referrals: VIRGINIE MARX MD [Primary Care Provider] -
[2019-09-03] MEDS ORDERED: MORPHINE SULFATE 4 MG INJ IV ONE (22:14)
[2019-09-03] MEDS ORDERED: Zofran 4 MG/2 ML VIAL IV ONE (22:14)
[2019-09-03] MEDS ORDERED: Zofran 4 MG/2 ML VIAL ONE (22:22)
[2019-09-03] MEDS ORDERED: MORPHINE SULFATE 4 MG INJ ONE (22:22)
[2019-09-03 23:39] LABS: Absolute Neutrophil Ct (ANC) 4.44 (1.4-6.9); BASOPHIL % 0.4 % (0.0-0.4); Basophil (Absolute #) 0.03 (0-0.4); Eosinophil % 0.5 % (0.00-5.0); Eosinophil (Absolute #) 0.04 (0-0.5); Hematocrit 43.6 % (42-50); Hemoglobin 14.8 gm/dl (12.5-18.0); Lymphocytes % 34.4 % (24.0-44.0); Mean Cell Volume 82.3 fl (78-100); Mean Corpuscular Hemoglobin 27.9 pg (26-32); Mean Corpuscular Hgb Concent. 33.9 g/dl (32-36); Mean Platelet Volume 10.4 fl (7.5-11.0); Monocyte (Absolute #) 0.84 (0.0-1.3); Monocytes % 10.3 % (0.0-12.0); Neutrophil % 54.4 % (36.0-66.0); Platelet Count 252 K/mm3 (150-450); Red Cell Distribution Width 13.5 % (11.5-14.0); White Blood Count 8.2 K/mm3 (4.0-10.5)
[2019-09-03] MEDS ORDERED: PROTONIX 40 MG IV IV ONE ×2 (23:40→23:47)
[2019-09-03] MEDS ORDERED: Sodium Chloride 0.9% 1000 ML 1,000 ML IV STA (23:40)
[2019-09-03] MEDS ORDERED: Sodium Chloride 0.9% 1000 ML 1,000 ML ONE (23:47)
[2019-09-03 23:53] LABS: ALBUMIN 4.5 g/dL (3.5-5.0); ALKALINE PHOSPHATASE 141 U/L (38-126); ANION GAP 15.4 MEQ/L (5-15); BLOOD UREA NITROGEN 13 mg/dL (9-20); CHLORIDE 107 mmol/L (98-107); Calcium 9.3 mg/dL (8.4-10.2); Carbon Dioxide 24 mmol/L (22-30); Creatinine 1 0.77 mg/dL (0.66-1.25); Glucose 134 mg/dL (74-106); LIPASE 103 U/L (23-300); Potassium 3.8 mmol/L (3.5-5.1); SGOT/AST 26 U/L (17-59); SGPT/ALT 36 U/L (0-50); SODIUM 142 mmol/L (137-145); Total Protein 7.6 g/dL (6.3-8.2)
[2019-09-04 00:21] LABS: Appearance CLEAR (CLEAR); Bilirubin NEGATIVE (NEGATIVE); Blood NEGATIVE Ery/ul (0-5); Glucose NEGATIVE (NEGATIVE); Ketones NEGATIVE (NEGATIVE); Leukocyte Esterase NEGATIVE (NEGATIVE); Nitrite NEGATIVE (NEGATIVE); Protein,Urine Dip NEGATIVE (Negative); Specific Gravity 1.012 (1.005-1.025); Urobilinogen NEGATIVE mg/dL (0-1)
[2019-09-04 00:24] LABS: Bacteria NONE SEEN /HPF (NEGATIVE); Epithelial Cells OCCASIONAL /HPF (FEW)
[2019-09-04 00:47] VITALS: O2SAT 95
[2019-09-04 01:05] VITALS: BP 137/90; PULSE 80
--- NOTE | 2019-09-04 08:10 | XRAY ---
Indication: Posterior head injury following fall. Multiple contiguous axial images obtained through the head without contrast. Comparison: July 04, 2016. Stable small right posterior fossa arachnoid cyst. No acute intracranial hemorrhage, abnormal extra-axial fluid collection, or mass effect. Fourth ventricle is midline without hydrocephalus. Bland-white matter differentiation preserved. Bony calvarium intact. Visualized paranasal sinuses and mastoid air cells are clear. Impression: Stable right posterior fossa arachnoid cyst. No new or acute intracranial abnormalities.
--- NOTE | 2019-09-04 08:15 | XRAY ---
Indication: Neck pain following fall. Multiple contiguous axial images obtained through the cervical spine. Sagittal and coronal reformatted images obtained. Comparison: July 04, 2016. Axial images again negative for acute fracture, suspicious bony lesions, or spinal canal stenosis. Sagittal and coronal reformatted images demonstrate normal alignment with vertebral body heights/disc spaces maintained. No acute compression fracture, subluxation, or jumped facet. Normal appearing craniocervical junction. Visualized noncontrasted soft tissues demonstrates tiny right paraesophageal/paratracheal air bubbles at the level of the cervical thoracic junction. Perforated esophagus is of primary concern. Remaining visualized noncontrasted soft tissues unremarkable. CT head and CT thoracic spine reported separately. Impression: 1. Right paraesophageal/paratracheal air bubbles. Rule out perforated esophagus. CT esophagram may yield further information. 2. Remaining CT cervical spine is negative.
--- NOTE | 2019-09-04 08:18 | XRAY ---
Indication: Pain following fall. Multiple contiguous axial images obtained through the thoracic spine. Sagittal and coronal reformatted images obtained. Comparison: None. Axial images negative for acute fracture, suspicious bony lesions, or spinal canal stenosis. Sagittal and coronal reformatted images demonstrate normal alignment with vertebral body heights/disc spaces maintained. No acute compression fracture or subluxation. Visualized noncontrasted soft tissues demonstrates tiny right paraesophageal/paratracheal air bubbles at the level of the cervical thoracic junction. Perforated esophagus is of primary concern. Small hiatal hernia. Remaining visualized noncontrasted soft tissues unremarkable. CT thoracic and CT lumbar spine reported separately. Impression: 1. Right paraesophageal/paratracheal air bubbles. Rule out perforated esophagus. CT esophagram may yield further information. 2. Incidental small hiatal hernia. 3. Remaining CT thoracic spine is negative.
--- NOTE | 2019-09-04 08:36 | XRAY ---
Indication: Pain following fall. Multiple contiguous axial images obtained through the lumbar spine. Sagittal and coronal reformatted images obtained. Comparison: None. Axial images negative for acute fracture, suspicious bony lesions, or spinal canal stenosis. Sagittal and coronal reformatted images demonstrates lumbar lordosis with vertebral body heights/disc spaces maintained. There is mild levoscoliosis centered at L3. No acute compression fracture or subluxation. Visualized noncontrasted soft tissues unremarkable. CT thoracic and CT pelvis reported separately. Impression: 1. Mild levoscoliosis. 2. Remaining CT lumbar spine is negative.
--- NOTE | 2019-09-04 08:37 | XRAY ---
Indication: Tiny paraesophageal/paratracheal air bubbles seen on same day CT cervical/thoracic spine. Possible perforated esophagus. Multiple contiguous axial images obtained through the chest following ingestion of Gastrografin. Comparison: None A few tiny right paraesophageal/paratracheal air bubbles seen at the level of the cervical thoracic junction but no other evidence for pneumomediastinum. There is no esophageal defect or abnormal contrast collection in the paraesophageal region or mediastinum to suggest perforation. Remaining esophagus unremarkable. Heart is not enlarged. Aorta is normal in course and caliber. No pathologic mediastinal lymphadenopathy. Lungs are inflated and clear. Bony thorax intact. Sternoclavicular joint demonstrates bilateral degenerative vacuum phenomena. Limited upper abdomen demonstrates contrast filled stomach/proximal bowel loops and appears unremarkable. Impression: 1. Tiny right paraesophageal/paratracheal extraluminal air bubbles. No evidence for esophageal defect/perforation. Incidental bilateral sternoclavicular degenerative vacuum phenomena that may be related. 2. Remaining CT chest without contrast exam is negative. Comment: Preliminary interpretation was made by [facility]. No critical discrepancy.
--- NOTE | 2019-09-04 08:39 | XRAY ---
Indication: Tailbone and right hip pain following fall. Multiple contiguous axial images obtained through the pelvis with special attention to the osseous structures. Sagittal and coronal reformatted images obtained. Comparison: None. No acute fracture or suspicious bony lesions. Hips and SI joints are bilaterally symmetric. Visualized noncontrasted soft tissues demonstrates minimal sigmoid diverticulosis and small fatty left inguinal hernia. Remaining visualized noncontrasted soft tissues including vasculature are unremarkable. CT lumbar spine reported separately. Impression: 1. Sigmoid diverticulosis and fatty left inguinal hernia. 2. Remaining CT pelvis is negative.
== END 2019-09-04 01:30 | disposition short-term general hospital (02) ==
LOC: ED 20:59
DX: J98.2 Interstitial emphysema (principal); S00.03XA Contusion of scalp, initial encounter; M54.5 Low back pain; M54.6 Pain in thoracic spine; M25.552 Pain in left hip; M25.551 Pain in right hip; M79.605 Pain in left leg; M79.604 Pain in right leg; W01.0XXA Fall on same level from slipping, tripping and stumbling without subsequent striking against object, initial encounter; Y93.89 Activity, other specified; Y92.89 Other specified places as the place of occurrence of the external cause; M53.3 Sacrococcygeal disorders, not elsewhere classified; I10 Essential (primary) hypertension; G40.909 Epilepsy, unspecified, not intractable, without status epilepticus; M54.2 Cervicalgia; Z79.899 Other long term (current) drug therapy; F41.9 Anxiety disorder, unspecified; Z72.0 Tobacco use; F15.90 Other stimulant use, unspecified, uncomplicated; F12.90 Cannabis use, unspecified, uncomplicated
CPT/HCPCS: 36000; 36415; 70450; 71250; 72125; 72128; 72131; 72192; 80053; 81001; 83605; 83690; 85025; 96360; 96374; 96375; 99285; 99291; J2270; J2405

== ENCOUNTER 2021-02-22 14:32 | Emergency (ER) | payer MEDICARE ==
[2021-02-22] MEDS ORDERED: TORAdol 30 mg Injection IM ONE (15:05)
[2021-02-22] MEDS ORDERED: TORAdol 30 mg Injection ONE (15:09)
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
[2021-02-22 16:22] VITALS: BP 125/76; PULSE 86; O2SAT 97
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
== END 2021-02-22 16:22 | disposition home or self-care (01) ==
LOC: ED 14:32
DX: S70.01XA Contusion of right hip, initial encounter (principal); V28.4XXA Motorcycle driver injured in noncollision transport accident in traffic accident, initial encounter
CPT/HCPCS: 73502; 96372; 99284; J1885

== ENCOUNTER 2021-11-06 15:20 | Emergency (ER) | payer MEDICARE | END 2021-11-06 17:35 | disposition left against medical advice (07) | LOC: ED 15:20 | DX: Z53.21 Procedure and treatment not carried out due to patient leaving prior to being seen by health care provider (principal) ==

== ENCOUNTER 2021-11-30 06:52 | Emergency (ER) | payer MEDICARE ==
--- NOTE | 2021-11-30 07:12 | ERPHSYRPT ---
- History of Present Illness Time Seen by Provider: 11/30/21 07:08 Source: patient Exam Limitations: no limitations Patient Subjective Stated Complaint: pt states "I fell asleep with my earbuds in and it got stuck." Triage Nursing Assessment: pt ambulated into the er; pt is axo x4; c/o foreign body in left ear; pt states 7/10 pain to left ear; black, rubber foreign body present to middle left ear; vitals wnl Physician History: Patient is a 41-year-old male who presents with an earbud implanted in his left ear canal. This is been present this morning and is very painful. He has no other complaints at this time. Timing/Duration: abrupt onset Severity: moderate ENT Location: ear (L) (Left ear has a foreign body) Prearrival Treatment: no prearrival treatment Modifying Factors: Improves With: nothing Associated Symptoms: ear pain (L) Allergies/Adverse Reactions: No Known Drug Allergies Allergy (Verified 11/30/21 06:56) Home Medications: Lisinopril 10 mg [Zestril 10 MG] 5 mg PO DAILY 07/04/16 [History] Atorvastatin Calcium 40 mg PO DAILY 09/03/19 [History] Divalproex Sodium [Depakote] 1,000 mg PO HS 09/03/19 [History] Metoprolol Succinate 25 mg Xl* [Toprol-Xl 25MG Tablets] 25 mg PO DAILY 09/03/19 [History] Mirtazapine 30 mg [Remeron 30 mg] 30 mg PO HS 09/03/19 [History] tadalafiL [Cialis] 5 mg PO DAILY 02/22/21 [History] Hx Tetanus, Diphtheria Vaccination/Date Given: No Hx Influenza Vaccination/Date Given: No Hx Pneumococcal Vaccination/Date Given: No Travel Risk - International Travel Have you traveled outside of the country in past 3 weeks: No - Coronavirus Screening Are you exhibiting any of the following symptoms?: No Close contact with a COVID-19 positive Pt in past 14-21 Days: No - Vaccine Status Have you recieved a Covid-19 vaccination: No - Review of Systems Constitutional: No Fever, No Chills Eyes: No Symptoms Ears, Nose, & Throat: Ear Pain Respiratory: No Cough, No Dyspnea Cardiac: No Chest Pain, No Edema, No Syncope Abdominal/Gastrointestinal: No Abdominal Pain, No Nausea, No Vomiting, No Diarrhea Genitourinary Symptoms: No Dysuria Musculoskeletal: No Back Pain, No Neck Pain Skin: No Rash Neurological: No Dizziness, No Focal Weakness, No Sensory Changes Psychological: No Symptoms Endocrine: No Symptoms All Other Systems: Reviewed and Negative - Past Medical History Pertinent Past Medical History: Yes Neurological History: Other ENT History: No Pertinent History Cardiac History: Hypertension Respiratory History: COPD Endocrine Medical History: No Pertinent History Musculoskeletal History: Degenerative Disk Disease, Osteoarthritis GI Medical History: No Pertinent History History: No Pertinent History Psycho-Social History: Anxiety, Bipolar, Depression Male Reproductive Disorders: Other Other Medical History: HE IS TRYING TO GET DISABILITY CURRENTLY HE HAS SEVERE PAIN TO BACK, KNEES, NECK, AND IS ACHEY ALL OVER. - Past Surgical History Past Surgical History: Yes Neuro Surgical History: No Pertinent History Cardiac: No Pertinent History Respiratory: No Pertinent History Gastrointestinal: No Pertinent History Genitourinary: No Pertinent History Musculoskeletal: Other Male Surgical History: Testicular Surgery Other Surgical History: SPINE RECONSTRUCTION - Social History Smoking Status: Current every day smoker How long have you smoked: 16 YEARS Exposure to second hand smoke: No Drug Use: marijuana Patient Lives Alone: No - Nursing Vital Signs Nursing Vital Signs: Initial Vital Signs Temperature 97.1 F 11/30/21 06:57 Pulse Rate 73 11/30/21 06:57 Respiratory Rate 18 11/30/21 06:57 Blood Pressure 139/91 11/30/21 06:57 O2 Sat by Pulse Oximetry 97 11/30/21 06:57 Pain Scale Pain Intensity 7 - Physical Exam General Appearance: no apparent distress, mild distress, alert Eye Exam: bilateral eye: normal inspection, PERRL, EOMI Ear Exam: left ear: foreign body (Foreign body in the left ear canal which appears to be an earbud) Nasal Exam: normal inspection Throat Exam: pharynx normal, moist mucus membranes, No tonsillar exudate Neck Exam: supple Neurologic Exam: alert, oriented x 3, cooperative, No motor deficits Skin Exam: normal color, warm, dry SpO2 Interpretation: normal SpO2: 97 O2 Delivery: Room Air - Course Nursing assessment & vital signs reviewed: Yes - Progress Progress: improved Progress Note: 11/30/21 07:10 We were able to remove the earbud foreign body from the left ear canal with minimal difficulty there was no active bleeding the canal appears undamaged - Departure Departure Disposition: Home Clinical Impression: Foreign body in left ear Condition: Stable Critical Care Time: No Referrals: VIRGINIE MARX MD [Primary Care Provider] - Follow up/PCP as directed Instructions: Removing Objects Stuck in the Ear
[2021-11-30 07:20] VITALS: BP 115/88; PULSE 89; O2SAT 98
== END 2021-11-30 07:19 | disposition home or self-care (01) ==
LOC: ED 06:52
DX: T16.2XXA Foreign body in left ear, initial encounter (principal); X50.9XXA Other and unspecified overexertion or strenuous movements or postures, initial encounter; Y93.84 Activity, sleeping; H92.02 Otalgia, left ear; I10 Essential (primary) hypertension; J44.9 Chronic obstructive pulmonary disease, unspecified; Z72.0 Tobacco use; Z79.899 Other long term (current) drug therapy; Z28.310 Unvaccinated for COVID-19
CPT/HCPCS: 99281